=== PATIENT | female | born 1980 | race Caucasian/White ===

== ENCOUNTER 2019-01-05 12:49 | Inpatient (IN) | payer MEDICAID ==
[~2019-01-05] VITALS: Ht 165.1 cm; Wt 79.0 kg
[2019-01-05] MEDS ORDERED: ketorolac trometh inj. 60 MG/2 ML VIAL IM ONE (13:35)
[2019-01-05] MEDS ORDERED: TETanus/Pertussis (Acell)/Diphther VAC/PF (Tdap-Adult) 0.5ml syringe IM ONE (13:35)
[2019-01-05] MEDS ORDERED: acetaminophen 325mg tablet PO ONE (13:35)
[2019-01-05] MEDS ORDERED: ceFAZolin 1gm IM kit IM ONE (13:40)
[2019-01-05] MEDS ORDERED: ampicillin/sulbac 3gm/NS 100ml 100 ML IV SCH (13:40)
[2019-01-05] MEDS ORDERED: piperacillin/tazo 4.5gm/100ml 100 ML IV ONE (13:55)
[2019-01-05] MEDS ORDERED: magnesium Cl slow-release 64mg tablet PO PRN (14:40)
[2019-01-05] MEDS ORDERED: acetaminophen 325mg tablet PO PRN (14:40)
[2019-01-05] MEDS ORDERED: ondansetron/PF 4mg/2ml inj IV PRN (14:40)
[2019-01-05] MEDS ORDERED: morphine 2 MG/ML inj. syringe IV PRN ×2 (14:40)
[2019-01-05] MEDS ORDERED: magnesium 2GM in 50ml NS 50 ML IV PRN (14:40)
[2019-01-05] MEDS ORDERED: potassium Cl 20 mEq SR tablet PO PRN ×2 (14:40)
[2019-01-05] MEDS ORDERED: mag hydrox/Alum hydrox/simeth 30ml oral suspension PO PRN (14:40)
[2019-01-05] MEDS ORDERED: potassium CL 10mEq/100ml bag 100 ML IV PRN ×2 (14:40)
[2019-01-05] MEDS ORDERED: magnesium 4gm in 100ml NS 100 ML IV PRN (14:40)
[2019-01-05] MEDS ORDERED: magnesium hydroxide 30ml (MOM) UD suspension PO PRN (14:40)
[2019-01-05 14:41] LABS: BASOPHILS # (AUTO) 0.1 X10'3 (0-0.2); BASOPHILS % (AUTO) 0.9 % (0-1); EOSINOPHILS # (AUTO) 0.3 X10'3 (0-0.9); EOSINOPHILS % (AUTO) 3.5 % (0-6); HEMATOCRIT 39.5 % (35.0-45.0); HEMOGLOBIN 13.8 g/dl (12.0-16.0); LYMPHOCYTES # (AUTO) 1.7 X10'3 (1.1-4.8); LYMPHOCYTES % (AUTO) 21.3 % (21-51); MEAN CORPUSCULAR HEMOGLOBIN 30.3 PG (27.0-31.0); MEAN CORPUSCULAR HGB CONC 34.9 g/dL (33.0-36.5); MEAN CORPUSCULAR VOLUME 86.8 FL (78-98); MEAN PLATELET VOLUME 7.6 FL (7.4-10.4); MONOCYTES % (AUTO) 13.2 % (2-12); NEUTROPHILS # (AUTO) 4.7 X10'3 (1.8-7.7); NEUTROPHILS % (AUTO) 61.1 % (42-75); PLATELET COUNT 308 X10'3 (140-440); RED BLOOD COUNT 4.55 X10'6 (4.20-5.60); RED CELL DISTRIBUTION WIDTH 13.4 % (11.5-14.5); WHITE BLOOD COUNT 7.8 X10'3 (4.5-11.0)
[2019-01-05 14:53] LABS: ALANINE AMINOTRANSFERASE 61 U/L (12-78); ALBUMIN 3.4 G/DL (3.4-5.0); ALBUMIN/GLOBULIN RATIO 0.7 (1.1-1.5); ALKALINE PHOSPHATASE 111 IU/L (46-116); ANION GAP 9 (8-16); ASPARTATE AMINO TRANSFERASE 34 U/L (10-37); BILIRUBIN,TOTAL 0.5 MG/DL (0.1-1.0); BLOOD UREA NITROGEN 6 MG/DL (7-18); BUN/CREATININE RATIO 8.7 (6.6-38.0); CALCIUM 9.3 MG/DL (8.5-10.1); CHLORIDE 106 MMOL/L (99-107); CREATININE 0.69 MG/DL (0.40-0.90); ETHANOL < 0.010 GM/DL (0.0-0.010); GLUCOSE 81 MG/DL (70-104); POTASSIUM 4.3 MMOL/L (3.5-5.1); SODIUM 141 MMOL/L (135-145); TOTAL CARBON DIOXIDE 25.8 MMOL/L (24-32); TOTAL PROTEIN 8.2 G/DL (6.4-8.2); eGFR > 90 ML/MIN
[2019-01-05] MEDS ORDERED: NO HOME MEDS (14:54)
[2019-01-05] MEDS: normal saline 1000ml 1,000 ML IV SCH (15:18)
[2019-01-05 15:29] LABS: CLARITY,URINE CLOUDY (Clear); COLOR,URINE YELLOW (Yellow); GLUCOSE, URINE NEGATIVE (Neg); KETONES,URINE TRACE mg/dl (Neg); LEUKOCYTE ESTERASE ,URINE NEGATIVE (Neg); NITRITES, URINE NEGATIVE (Neg); OCCULT BLOOD,URINE NEGATIVE (Neg); PH,URINE 5.5 (4.8-8.0); PROTEIN,URINE NEGATIVE (Neg)
[2019-01-05 15:30] LABS: URINE HCG NEGATIVE (NEG)
[2019-01-05 15:42] LABS: UA COLLECTION TYPE CLN CATCH MIDSTREAM
[2019-01-05 15:43] LABS: URINE AMPHETAMINE SCREEN POSITIVE (Neg); URINE BARBITUATE SCREEN NEGATIVE (Neg); URINE BENZODIAZEPINES SCREEN NEGATIVE (Neg); URINE CANNABINOID SCREEN NEGATIVE (Neg); URINE COCAINE SCREEN NEGATIVE (Neg); URINE METHADONE SCREEN NEGATIVE (Neg); URINE OPIATE SCREEN POSITIVE (Neg); URINE PHENCYCLIDINE SCREEN NEGATIVE (Neg)
[2019-01-05 15:53] LABS: RBC,URINE NONE SEEN /HPF (0-2)
[2019-01-05 15:54] LABS: CAL OXALATE CRYSTALS 4+ /HPF (NEGATIVE); MUCUS STRANDS MANY /LPF (Neg); SQUAMOUS EPITHELIAL CELL,UR FEW /LPF (FEW); WBC,URINE 0-4 /HPF (0-4)
[2019-01-05 15:55] LABS: BACTERIA,URINE FEW /HPF (Neg)
[2019-01-05] MEDS ORDERED: piperacillin/tazo 3.375gm/50ml 50 ML IV SCH (16:00)
--- NOTE | 2019-01-05 16:52 | NUR ---
received report from ER nurse
[2019-01-05 17:19] VITALS: BP 99/75
[2019-01-05 18:00] VITALS: BP 99/75
--- NOTE | 2019-01-05 18:20 | NUR ---
Patient in room [facility]. I have received report from NAMRATA Looney and had the opportunity to ask questions and assume patient care.
[2019-01-05] MEDS: HYDROcodone/acetaminophen 5mg/325mg tablet PO PRN (19:50)
[2019-01-05 22:00] VITALS: BP 104/63
[2019-01-05] MEDS: ketorolac trometh. 30mg/ml inj. IV PRN (22:14)
[2019-01-05] MEDS: piperacillin/tazo 3.375gm/50ml 50 ML IV SCH (23:53)
[2019-01-06] MEDS: normal saline 1000ml 1,000 ML IV SCH (04:06)
[2019-01-06] MEDS: ketorolac trometh. 30mg/ml inj. IV PRN (04:06)
[2019-01-06 06:10] VITALS: BP 110/63
[2019-01-06 06:10] LABS: BASOPHILS # (AUTO) 0.1 X10'3 (0-0.2); BASOPHILS % (AUTO) 0.8 % (0-1); EOSINOPHILS # (AUTO) 0.3 X10'3 (0-0.9); EOSINOPHILS % (AUTO) 3.3 % (0-6); HEMATOCRIT 36.2 % (35.0-45.0); HEMOGLOBIN 12.7 g/dl (12.0-16.0); LYMPHOCYTES % (AUTO) 23.7 % (21-51); MEAN CORPUSCULAR HEMOGLOBIN 30.4 PG (27.0-31.0); MEAN CORPUSCULAR HGB CONC 35.2 g/dL (33.0-36.5); MEAN CORPUSCULAR VOLUME 86.4 FL (78-98); MEAN PLATELET VOLUME 7.8 FL (7.4-10.4); MONOCYTES # (AUTO) 1.1 X10'3 (0-0.9); NEUTROPHILS # (AUTO) 4.9 X10'3 (1.8-7.7); NEUTROPHILS % (AUTO) 59.2 % (42-75); PLATELET COUNT 288 X10'3 (140-440); RED BLOOD COUNT 4.19 X10'6 (4.20-5.60); RED CELL DISTRIBUTION WIDTH 13.1 % (11.5-14.5); WHITE BLOOD COUNT 8.3 X10'3 (4.5-11.0)
--- NOTE | 2019-01-06 06:32 | NUR ---
I have received patient report from Laura OTT
--- NOTE | 2019-01-06 06:35 | NUR ---
Problems reprioritized. Patient report given, questions answered & plan of care reviewed with NAMRATA Peñaloza.
[2019-01-06 06:40] LABS: ALBUMIN 2.7 G/DL (3.4-5.0); ANION GAP 10 (8-16); BLOOD UREA NITROGEN 11 MG/DL (7-18); BUN/CREATININE RATIO 13.1 (6.6-38.0); CALCIUM 8.3 MG/DL (8.5-10.1); CHLORIDE 109 MMOL/L (99-107); CREATININE 0.84 MG/DL (0.40-0.90); POTASSIUM 4.2 MMOL/L (3.5-5.1); SODIUM 143 MMOL/L (135-145); TOTAL CARBON DIOXIDE 24.4 MMOL/L (24-32); eGFR 75 ML/MIN
[2019-01-06 06:44] LABS: GLUCOSE 101 MG/DL (70-104)
[2019-01-06] MEDS ORDERED: K and/or MAG REPLACEMENT MC SCH (08:00)
[2019-01-06] MEDS ORDERED: enoxaparin 40mg/0.4ml syringe SQ SCH (08:00)
[2019-01-06] MEDS: piperacillin/tazo 3.375gm/50ml 50 ML IV SCH (09:08)
[2019-01-06 10:00] VITALS: BP 128/94
[2019-01-06] MEDS: HYDROcodone/acetaminophen 5mg/325mg tablet PO PRN (11:32)
[2019-01-06] MEDS ORDERED: nicotine 21mg patch - 24 hr TD SCH (12:00)
[2019-01-06] MEDS ORDERED: LACTC PO (12:20)
[2019-01-06] MEDS ORDERED: AMOX-422 PO (12:22)
[2019-01-06] MEDS ORDERED: HYDR-3965 PO (12:22)
--- NOTE | 2019-01-06 13:05 | NUR ---
Dr Tate taught patient wound care instructions and educated patient about wound. Patient discharge with her at this time. Paper copy of norco and Augmentin given to patient.
== END 2019-01-06 13:05 | disposition home or self-care (01) | DRG 342 ==
LOC: ER 12:50 → ORTHO 4S 17:02
PROVIDERS: ADMIT Hospitalist; ATTEND Hospitalist
DX: S52.202A Unspecified fracture of shaft of left ulna, initial encounter for closed fracture (principal); F17.210 Nicotine dependence, cigarettes, uncomplicated; L03.114 Cellulitis of left upper limb; S41.152A Open bite of left upper arm, initial encounter; Z88.6 Allergy status to analgesic agent; Z79.899 Other long term (current) drug therapy; W54.0XXA Bitten by dog, initial encounter; Y93.89 Activity, other specified; Y92.89 Other specified places as the place of occurrence of the external cause; Y99.8 Other external cause status
CPT/HCPCS: 36415; 71045; 73090; 80048; 80053; 80305; 80320; 81001; 81025; 83735; 85025; 85610; 86885; 86900; 86901; 87081; 90471; 93005; 96365; 96372; 99285; G0378; J0295; J1650; J1885; J2405; J2543; J7030

== ENCOUNTER 2022-12-13 20:14 | Emergency (ER) | payer MEDICAID ==
[~2022-12-13] VITALS: Ht 170.2 cm; Wt 85.0 kg
[~2022-12-13 20:14] MED LIST: LACTC PO
[2022-12-13 20:32] VITALS: BP 152/95; PULSE 120; RESP 18; TEMP 97.3; O2SAT 95
[2022-12-13] MEDS ORDERED: LORazepam 1 MG tablet PO ONE (21:25)
[2022-12-13 21:48] LABS: BASOPHILS % (AUTO) 0.4 % (0-1); EOSINOPHILS % (AUTO) 0.4 % (0-6); HEMATOCRIT 46.6 % (35.0-45.0); HEMOGLOBIN 16.4 g/dl (12.0-16.0); LYMPHOCYTES # (AUTO) 1.5 X10'3 (1.1-4.8); LYMPHOCYTES % (AUTO) 15.7 % (21-51); MEAN CORPUSCULAR HEMOGLOBIN 31.3 PG (27.0-31.0); MEAN CORPUSCULAR HGB CONC 35.2 g/dL (33.0-36.5); MEAN CORPUSCULAR VOLUME 88.8 FL (78-98); MEAN PLATELET VOLUME 9.6 FL (7.4-10.4); MONOCYTES # (AUTO) 0.7 X10'3 (0-0.9); NEUTROPHILS # (AUTO) 7.2 X10'3 (1.8-7.7); NEUTROPHILS % (AUTO) 76.5 % (42-75); PLATELET COUNT 244 X10'3 (140-440); RED BLOOD COUNT 5.25 X10'6 (4.20-5.60); RED CELL DISTRIBUTION WIDTH 13.2 % (11.5-14.5); WHITE BLOOD COUNT 9.4 X10'3 (4.5-11.0)
[2022-12-13 21:58] LABS: ALANINE AMINOTRANSFERASE 29 U/L (12-78); ALBUMIN 4.1 G/DL (3.4-5.0); ALBUMIN/GLOBULIN RATIO 0.8 (1.1-1.5); ALKALINE PHOSPHATASE 96 IU/L (46-116); ANION GAP 10 (8-16); ASPARTATE AMINO TRANSFERASE 17 U/L (10-37); BILIRUBIN,TOTAL 1.1 MG/DL (0.1-1.0); BLOOD UREA NITROGEN 9 MG/DL (7-18); BUN/CREATININE RATIO 9.2 (10.0-20.0); CALCIUM 10.1 MG/DL (8.5-10.1); CHLORIDE 102 MMOL/L (99-107); CREATININE 0.98 MG/DL (0.40-0.90); POTASSIUM 3.6 MMOL/L (3.5-5.1); SODIUM 141 MMOL/L (135-145); TOTAL CARBON DIOXIDE 28.6 MMOL/L (24-32); TOTAL PROTEIN 9.2 G/DL (6.4-8.2); eCRCL 72 ML/MIN; eGFR 62 ML/MIN
[2022-12-13 22:17] LABS: GLUCOSE 132 MG/DL (70-104)
== END 2022-12-13 22:44 | disposition home or self-care (01) ==
LOC: ER 20:15
DX: R00.0 Tachycardia, unspecified (principal); T50.7X5A Adverse effect of analeptics and opioid receptor antagonists, initial encounter; Y92.89 Other specified places as the place of occurrence of the external cause; I25.2 Old myocardial infarction; F17.200 Nicotine dependence, unspecified, uncomplicated; F15.90 Other stimulant use, unspecified, uncomplicated; Z86.19 Personal history of other infectious and parasitic diseases; Z88.8 Allergy status to other drugs, medicaments and biological substances; Z79.899 Other long term (current) drug therapy
CPT/HCPCS: 36415; 80053; 84484; 85025; 93005; 99284

== ENCOUNTER 2024-10-04 13:43 | Inpatient (IN) | payer MEDICAID ==
[~2024-10-04] VITALS: Ht 167.6 cm; Wt 114.0 kg
[2024-10-04 14:53] LABS: BASOPHILS % (AUTO) 0.2 % (0-1); EOSINOPHILS % (AUTO) 0 % (0-6); HEMATOCRIT 43.4 % (35.0-45.0); HEMOGLOBIN 14.9 g/dl (12.0-16.0); LYMPHOCYTES # (AUTO) 0.9 X10'3 (1.1-4.8); MEAN CORPUSCULAR HEMOGLOBIN 30.1 PG (27.0-31.0); MEAN CORPUSCULAR HGB CONC 34.3 g/dL (33.0-36.5); MEAN CORPUSCULAR VOLUME 87.7 FL (78-98); MEAN PLATELET VOLUME 9.7 FL (7.4-10.4); MONOCYTES # (AUTO) 0.3 X10'3 (0-0.9); MONOCYTES % (AUTO) 3.6 % (2-12); NEUTROPHILS # (AUTO) 8.2 X10'3 (1.8-7.7); NEUTROPHILS % (AUTO) 87.2 % (42-75); PLATELET COUNT 268 X10'3 (140-440); RED BLOOD COUNT 4.94 X10'6 (4.20-5.60); RED CELL DISTRIBUTION WIDTH 12.8 % (11.5-14.5); WHITE BLOOD COUNT 9.4 X10'3 (4.5-11.0)
[2024-10-04 15:06] LABS: ALANINE AMINOTRANSFERASE 625 U/L (12-78); ALBUMIN 3.7 G/DL (3.4-5.0); ALBUMIN/GLOBULIN RATIO 0.8 (1.1-1.5); ALKALINE PHOSPHATASE 120 IU/L (46-116); ANION GAP 14 (8-16); ASPARTATE AMINO TRANSFERASE 622 U/L (10-37); BILIRUBIN,TOTAL 2.9 MG/DL (0.1-1.0); BLOOD UREA NITROGEN 9 MG/DL (7-18); BUN/CREATININE RATIO 9.3 (10.0-20.0); CALCIUM 9.2 MG/DL (8.5-10.1); CHLORIDE 103 MMOL/L (99-107); CREATININE 0.97 MG/DL (0.40-0.90); GLUCOSE 161 MG/DL (70-104); LIPASE 34 U/L (16-77); POTASSIUM 3.7 MMOL/L (3.5-5.1); SODIUM 142 MMOL/L (135-145); TOTAL CARBON DIOXIDE 25.1 MMOL/L (24-32); TOTAL PROTEIN 8.2 G/DL (6.4-8.2); eCRCL 72 ML/MIN; eGFR 62 ML/MIN
--- NOTE | 2024-10-04 15:23 | Physician Documentation ---
History of Present Illness Chief Complaint: Abdominal Pain Stated Complaint: ABD PAIN VOMITING Time Seen by MD: 14:29 Primary Medical Doctor: Vernell Nunez MD [facility] This is a 43-year-old female who presents with acute onset of epigastric pain at approximately 1:30 this morning, pain is without precipitating or palliating factors and patient reports accompanying vomiting and diarrhea without reported blood, patient reports no fever. Medication Reconciliation Allergies: Coded Allergies: codeine (Unverified Allergy, Unknown, HIVES, 01/05/19) Scheduled Lactobacillus Acidophilus (ACIDOPHILUS capsule), 1 CAP PO DAILY, (Reported) Methadone Hcl (Dolophine), 12 TAB PO DAILY Past Medical History Past Medical History: Myocardial Infarction, Hepatitis C Past Surgical History: noncontributory Drug Use: methamphetamine Lives In: Home Review of Systems ROS Epigastric and right quadrant abdominal pain as stated above in the HPI, otherwise all systems are reviewed and negative. Physical Exam Vital Signs: Temperature: 97.9, Source: Temporal, Heart Rate: 67, Respiratory Rate: 17, BP: 114/76, Pulse Oximetry: 96, Weight: 115.850 Oxygen Flow Rate: 0 Physical Exam VITALS: Reviewed and as above. GENERAL: Alert, painful appearing, nontoxic appearing. RESPIRATORY: No increased work of breathing, no respiratory distress, speaking in full clear sentences, lung sounds clear in all guo CV: Regular rate and rhythm no murmur BACK: No CVA tenderness GI: Upper epigastric tenderness to palpation, soft, nondistended, no rebound, no guarding, bowel sounds present Progress Progress Note 1617: I spoke with on-call GI Dr. Todd who recommends admission for serial monitoring of labs, MRCP, and a surgical consult 1629: I spoke with on-call general surgeon Dr. Carrizales who agrees to consult on patient 1727: I spoke with Dr. Melchor hospitalist attending who kindly accepts patient for admission Results/Orders Results/Orders Orders - SUMIT HOOKS Ultrasound Of Abdomen (10/04/24 15:14) Completed Orders - SUMIT HOOKS Ketorolac Trometh 15mg/Ml Vial (Toradol (10/04/24 15:15) Vital Signs 10/04/24 10/04/24 13:46 14:35 Temp 97.9 Pulse 67 Resp 18 17 B/P (MAP) 114/76 Pulse Ox 96 O2 Flow Rate 0 Laboratory Tests Test 10/04/24 14:19 White Blood Count 9.4 Red Blood Count 4.94 Hemoglobin 14.9 Hematocrit 43.4 Mean Corpuscular Volume 87.7 Mean Corpuscular Hemoglobin 30.1 Mean Corpuscular Hemoglobin Concent 34.3 Red Cell Distribution Width 12.8 Platelet Count 268 Mean Platelet Volume 9.7 Neutrophils (%) (Auto) 87.2 H Lymphocytes (%) (Auto) 9.0 L Monocytes (%) (Auto) 3.6 Eosinophils (%) (Auto) 0 Basophils (%) (Auto) 0.2 Neutrophils # (Auto) 8.2 H Lymphocytes # (Auto) 0.9 L Monocytes # (Auto) 0.3 Eosinophils # (Auto) 0.0 Basophils # (Auto) 0.0 CBC Comment Sodium Level 142 Potassium Level 3.7 Chloride Level 103 Carbon Dioxide Level 25.1 Anion Gap 14 Blood Urea Nitrogen 9 Creatinine 0.97 H Estimated GFR/1.73 m2 62 BUN/Creatinine Ratio 9.3 L Glucose Level 161 H Calcium Level 9.2 Total Bilirubin 2.9 H Aspartate Amino Transf (AST/SGOT) 622 H Alanine Aminotransferase (ALT/SGPT) 625 H Alkaline Phosphatase 120 H Total Protein 8.2 Albumin 3.7 Globulin 4.5 H Albumin/Globulin Ratio 0.8 L Lipase 34 Chemistry Comments EKG/XRAY/CT/US/VASC/MRI Ultrasound : Impression EXAM: US Abdomen Limited, Right Upper Quadrant CLINICAL INDICATION: Epigastric Pain TECHNIQUE: Real-time ultrasound of the right upper quadrant with image documentation. COMPARISON: None FINDINGS: LIVER: Fatty infiltration of the liver. Liver measures up to 19.57 mm. No intrahepatic bile duct dilation. GALLBLADDER: Cholelithiasis. Positive Gomez's. COMMON BILE DUCT: Common bile duct is prominent measuring 0.72 cm in diameter. No common bile duct stone is seen. PANCREAS: Unremarkable as visualized. RIGHT KIDNEY: Right kidney measures up to 10.93 cm. No stones. No hydronephrosis. OTHER FINDINGS: . . IMPRESSION: 1. Fatty infiltration of the liver. 2. Cholelithiasis with positive Gomez's sign. Evolving acute cholecystitis can not be excluded. 3. Common bile duct is prominent measuring 0.72 cm in diameter. No common bile duct stone is seen. Electronically Signed by:KIKI ARCHER MD Date & Time: 10/04/24 163 Dictated by: KIKI ARCHER MD Dictation date and time: 10/04/24 1631 Medical Decision Making Findings This 43-year-old female presented to the emergency department with acute onset of epigastric and right quadrant pain this morning without palliating or provoking factors, physical exam demonstrated epigastric and right upper quadrant abdominal tenderness and ultrasound was obtained demonstrating nonmobile stone in the neck of the gallbladder along with CBD dilation without evidence of stone in the CBD, additionally there was no evidence of gallbladder wall thickening or pericystic fluid. Patient's labs significant for elevated bilirubin, AST, ALT, and alk phos without elevation of lipase. Discussed case with on-call GI as this is consistent with cholelithiasis with possible evolving cholecystitis or choledocholithiasis, GI recommends admission for MRCP, serial monitoring, and recommends getting a surgical consult. On-call surgeon contacted who agrees to consult on patient. Patient is currently hemodynamically stable and afebrile making suspicion for acute colicystitis or cholangitis along with sepsis low at this point therefore antibiotics not initiated. Patient initiated on pain medications. Hospitalist team contacted and kindly accepts patient for admission. Differential Dx:Considerations: Include: Appendicitis, Bowel obstruction, Cholangitis, Constipation, Diverticular disease, Gastritis/PUD, Gastroenteritis, Inflammatory BD, Ovarian cyst/torsion, Urinary obstruction, Urinary tract infection, Urolithiasis Departure Disposition: 09 ADMITTED INPATIENT Admitted to Inpatient Unit: to hospitalist Impression: Primary Impression: Cholelithiasis Qualified Codes: K80.21 - Calculus of gallbladder without cholecystitis with obstruction Condition: Guarded Referrals: NO PRIMARY CARE PROVIDER (PCP) Prescriptions Methadone Hcl (Dolophine) 10 Mg Tablet 12 TAB PO DAILY for pain for 5 Days, #15 TAB Prov: KIKI MELCHOR DO 10/04/24 Signature Scribe Signature: No scribe Attestation: The note accurately reflects work and decisions made by me.ARASH Soto 10/05/24 03:17 SUMIT HOOKS Oct 04, 2024 15:23
[2024-10-04] MEDS: ketorolac trometh 15mg/ml vial 15 MG/ML ML IV ONE (15:36)
--- NOTE | 2024-10-04 16:33 | RADIOLOGY REPORT ---
EXAM: US Abdomen Limited, Right Upper Quadrant CLINICAL INDICATION: Epigastric Pain TECHNIQUE: Real-time ultrasound of the right upper quadrant with image documentation. COMPARISON: None FINDINGS: LIVER: Fatty infiltration of the liver. Liver measures up to 19.57 mm. No intrahepatic bile duct dilation. GALLBLADDER: Cholelithiasis. Positive Gomez's. COMMON BILE DUCT: Common bile duct is prominent measuring 0.72 cm in diameter. No common bile duct stone is seen. PANCREAS: Unremarkable as visualized. RIGHT KIDNEY: Right kidney measures up to 10.93 cm. No stones. No hydronephrosis. OTHER FINDINGS: . . IMPRESSION: 1. Fatty infiltration of the liver. 2. Cholelithiasis with positive Gomez's sign. Evolving acute cholecystitis can not be excluded. 3. Common bile duct is prominent measuring 0.72 cm in diameter. No common bile duct stone is seen.
[2024-10-04] MEDS: morphine 4 MG/ML inj SYRINge IV ONE (17:15)
[2024-10-04] MEDS: ondansetron/PF 4mg/2ml inj IV ONE (17:15)
[2024-10-04] MEDS ORDERED: potassium Cl 40MEQ/1/2NS 520ml 520 ML IV PRN (17:35)
[2024-10-04] MEDS ORDERED: mag hydrox/Alum hydrox/simeth 30ml oral suspension PO PRN (17:35)
[2024-10-04] MEDS ORDERED: magnesium sulf-water 2g/50mL 50 ML IV PRN (17:35)
[2024-10-04] MEDS ORDERED: HYDROmorphone inj. 0.5 MG/0.5 ML DISP.SYRIN IV PRN (17:35)
[2024-10-04] MEDS ORDERED: magnesium sulf-water 4G/100mL 100 ML IV PRN (17:35)
[2024-10-04] MEDS ORDERED: potassium Cl 20 mEq SR tablet PO PRN ×2 (17:35)
[2024-10-04] MEDS: normal saline 1000ml 1,000 ML IV SCH (18:55)
[2024-10-04] MEDS: HYDROmorphone 1 mg/ml syringe IV PRN (18:55)
[2024-10-04] MEDS: ondansetron/PF 4mg/2ml inj IV PRN (19:03)
--- NOTE | 2024-10-04 19:03 | CONSULTATION REPORT ---
History of Present Illness Providers to CC CC: SUMIT LEE MD ~ Reason for Admit\Admit Dx: Abdominal pain Refering MD: Vernell Nunez MD History of Present Illness Acute onset of upper abdominal pain this morning at about 1:30 a.m.. Awakened from sleep. Progressive and increasing in severity. Nausea and vomiting Evaluation by the emergency room physician shows findings concerning for possible choledocholithiasis Elevated bilirubin, transaminitis and slightly elevated alkaline phosphatase Known cholelithiasis MRCP results pending, however, I do not see any definitive stones in the common duct Cholelithiasis Allergies: Coded Allergies: codeine (Unverified Allergy, Unknown, HIVES, 01/05/19) Home Medications Home Medications Active Reported ACIDOPHILUS capsule (Lactobacillus Acidophilus) 1 Cap Capsule 1 Cap PO DAILY 20 Days Past Medical History Medical History Comment None reported Past Surgical History Surgical History Comment None reported Past Family History Family History Comment Noncontributory Past Social History Social History Comment History of narcotic abuse Denies alcohol History of methamphetamine use Health Maintenance Health Maintenance Not applicable Physical Exam Last Vital Signs Recorded: RN Vital Signs have been reviewed: Yes, Temperature: 97.9, Source: Temporal, Heart Rate: 58, Respiratory Rate: 16, BP: 130/75, Pulse Oximetry: 92, Weight: 115.850 General Appearance: alert, WD/WN, obese EENT: PERRL/EOMI; No: scleral icterus (R), scleral icterus (L) Neck: normal inspection, supple Respiratory: crackles Cardiovascular: regular rate, rhythm Gastrointestinal Softly distended Significant epigastric and right upper quadrant tenderness to palpation without rebound No palpable masses Review of Systems ROS ROS Comments: Reviewed and negative with the exception of those found in the history of present illness Results Diagram Lab Result Diagram: 10/04/24 1419 10/04/24 1419 Assessment/Plan Problems/Diagnosis: (1) Hyperbilirubinemia (2) Cholelithiasis Additional Plan I suspect transient choledocholithiasis I will await the final results of the MRCP, however, anticipate that the bilirubin and transaminitis should trend downward tomorrow morning If this is the case, we will recommend interval cholecystectomy It is also possible that the patient has acute cholecystitis with the compression of the common duct (Mirizzi syndrome). Either way, patient will ultimately need cholecystectomy. NPO after midnight Repeat CMP in the morning Await MRCP results Should the MRCP be interpreted as choledocholithiasis or if there was significant up trending of the bilirubin and alkaline phosphatase, interval ERCP prior to interval cholecystectomy would be recommended. Problem Qualifiers (1) Cholelithiasis: Qualified Codes: K80.21 - Calculus of gallbladder without cholecystitis with obstruction SUMIT LEE MD Oct 04, 2024 19:03
[2024-10-04] MEDS: K and/or MAG REPLACEMENT MC SCH (20:00)
[2024-10-04] MEDS: docusate sod 100mg capsule PO SCH (20:00)
[2024-10-04 20:28] LABS: URINE HCG NEGATIVE (NEG)
[2024-10-04 20:30] LABS: BILIRUBIN,URINE LARGE (Neg); CLARITY,URINE CLOUDY (Clear); COLOR,URINE AMBER (Yellow); GLUCOSE, URINE 100 mg/dl (Neg); KETONES,URINE 15 mg/dl (Neg); LEUKOCYTE ESTERASE ,URINE NEGATIVE (Neg); NITRITES, URINE POSITIVE (Neg); OCCULT BLOOD,URINE TRACE-INTACT (Neg); PROTEIN,URINE 30 mg/dl (Neg)
[2024-10-04 20:44] LABS: UA COLLECTION TYPE CLN CATCH MIDSTREAM
[2024-10-04 20:46] LABS: BACTERIA,URINE 4+ /HPF (Neg); MUCUS STRANDS NONE SEEN /LPF (Neg); SQUAMOUS EPITHELIAL CELL,UR FEW /LPF (FEW)
[2024-10-04 20:47] LABS: AMORPHOUS URATES 1+
[2024-10-04 21:00] VITALS: BP 143/83; PULSE 63; RESP 22; TEMP 99.1; O2SAT 96
--- NOTE | 2024-10-04 21:17 | HISTORY AND PHYSICAL ---
History & Physical Providers to CC ~ History of Present Illness Reason for Admit\Complaint: Cholecystitis possible choledocholithiasis History of Present Illness This is a 43-year-old female who early this morning at 1:30 a.m. developed upper abdominal pain with nausea and vomiting- the pain is severe to the point where she ended up coming to the ED the patient denies any fever- the patient has significant hyperbilirubinemia 2.9 and transaminitis- and a abdominal ultrasound demonstrates cholelithiasis and a prominent common bile duct of 0.72 cm but no stones in the common bile duct. Dr. Carrizales surgeon evaluated the patient and reviewed the MRCP in his assessed that the MRCP was not impressive if the bilirubin trends down Dr. Carrizales will take the patient for a cholecystectomy tomorrow otherwise the patient may require an ERCP with Dr Todd interior decorator paperhanging Allergies: Coded Allergies: codeine (Unverified Allergy, Unknown, HIVES, 01/05/19) Home Medications Home Medications Active Reported ACIDOPHILUS capsule (Lactobacillus Acidophilus) 1 Cap Capsule 1 Cap PO DAILY 20 Days Past Medical History Past Medical History Hepatitis-C treated, myocardial infarction, Past Surgical History Surgical History Comment No prior surgeries Family History Family History: FH: breast cancer Maternal grandmother FH: lung cancer FATHER Maternal grandmother FH: prostate cancer Maternal grandfather Past Social History Social History Comment Vapes nicotine, does not drink alcohol, has 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, full code status ROS ROS Except for positives in the HPI the rest of the 14 point review systems is negative Exam Vitals: Vital Signs Date Time Temp Pulse Resp B/P (MAP) Pulse Ox O2 Delivery O2 Flow Rate FiO2 10/04/24 18:55 16 10/04/24 18:24 58 130/75 (93) 92 0 10/04/24 13:46 97.9 Diagnostic Data Last Recorded Lab Results: 10/04/24 1419 10/04/24 1419 Problems: (1) Cholelithiasis Status: Acute Additional Plan #Cholecystitis/ possible choledocholithiasis- significant hyperbilirubinemia 2.9 and transaminitis- and a abdominal ultrasound demonstrates cholelithiasis and a prominent common bile duct of 0.72 cm but no stones in the common bile duct. Dr. Carrizales surgeon evaluated the patient and reviewed the MRCP in his assessed that the MRCP was not impressive if the bilirubin trends down Dr. Carrizales will take the patient for a cholecystectomy tomorrow otherwise the patient may require an ERCP with Dr Todd interior decorator paperhanging- on IV Zosyn # history of heroin addiction- Per patient on methadone 129 mg through [facility] nursing staff we will need to confirm this in the morning # Tobacco abuse-I spent 6 minutes discussing smoking cessation with the patient including the risk of continuing smoke: Lung cancer, stroke, heart attack, poor wound healing, increased in facial wrinkling, The patient has accepted a 14 mg nicotine patch. # hepatitis-C Cured # history of HI- No signs of acute coronary syndrome # DVT prophylaxis SCDs and SQ Lovenox # I spent a total of 17 minutes on reviewing various resuscitative measures/ ACP with the patient at the time of admission. The patient has decided on a full code status Date of Service: Oct 04, 2024 Billing Provider: KIKI HERRMANN DO Common Visit Codes: 01507-ZVHDLHC INP/OBS CARE (HIGH) Secondary Visit Codes: 99391-WTTKP CHNG SMOKING 3-10M, 84343-[id number] CARE PLAN 30 MINUTES Problem Qualifiers (1) Cholelithiasis: Cholelithiasis location: gallbladder Cholecystitis presence: without cholecystitis Biliary obstruction: with biliary obstruction Qualified Codes: K80.21 - Calculus of gallbladder without cholecystitis with obstruction KIKI HERRMANN DO Oct 04, 2024 21:17
[2024-10-04] MEDS ORDERED: DOL10T PO (21:39)
[2024-10-04] MEDS: methadone 10mg tablet PO ONE (22:30)
[2024-10-04] MEDS: metoclopramide 10mg tablet PO ONE (22:30)
[2024-10-04] MEDS: enoxaparin 40mg/0.4ml syringe SQ SCH (22:31)
[2024-10-05] VITALS (22 sets, daily range): BP systolic 110–168; BP diastolic 65–93; PULSE 52–76; RESP 12–22; TEMP 97.4–98.7; O2SAT 92–100
[2024-10-05] MEDS: piperacillin/tazo 4.5gm/100ml 100 ML IV SCH (01:28)
[2024-10-05] MEDS: acetaminophen 325mg tablet PO PRN (02:19)
[2024-10-05 04:35] LABS: BASOPHILS % (AUTO) 0.3 % (0-1); EOSINOPHILS % (AUTO) 0 % (0-6); HEMATOCRIT 43.2 % (35.0-45.0); HEMOGLOBIN 14.5 g/dl (12.0-16.0); LYMPHOCYTES # (AUTO) 1.4 X10'3 (1.1-4.8); LYMPHOCYTES % (AUTO) 12.5 % (21-51); MEAN CORPUSCULAR HEMOGLOBIN 29.9 PG (27.0-31.0); MEAN CORPUSCULAR HGB CONC 33.6 g/dL (33.0-36.5); MEAN CORPUSCULAR VOLUME 88.9 FL (78-98); MEAN PLATELET VOLUME 9.6 FL (7.4-10.4); MONOCYTES # (AUTO) 0.6 X10'3 (0-0.9); MONOCYTES % (AUTO) 5.6 % (2-12); NEUTROPHILS # (AUTO) 9.3 X10'3 (1.8-7.7); NEUTROPHILS % (AUTO) 81.6 % (42-75); PLATELET COUNT 240 X10'3 (140-440); RED BLOOD COUNT 4.86 X10'6 (4.20-5.60); WHITE BLOOD COUNT 11.4 X10'3 (4.5-11.0)
[2024-10-05 04:57] LABS: ALANINE AMINOTRANSFERASE 890 U/L (12-78); ALBUMIN 3.4 G/DL (3.4-5.0); ALKALINE PHOSPHATASE 130 IU/L (46-116); ANION GAP 10 (8-16); ASPARTATE AMINO TRANSFERASE 648 U/L (10-37); BILIRUBIN,TOTAL 5.2 MG/DL (0.1-1.0); BLOOD UREA NITROGEN 8 MG/DL (7-18); BUN/CREATININE RATIO 6.5 (10.0-20.0); CALCIUM 8.8 MG/DL (8.5-10.1); CHLORIDE 103 MMOL/L (99-107); CREATININE 1.23 MG/DL (0.40-0.90); GLUCOSE 139 MG/DL (70-104); MAGNESIUM 2.1 MG/DL (1.5-2.4); POTASSIUM 3.9 MMOL/L (3.5-5.1); SODIUM 144 MMOL/L (135-145); TOTAL CARBON DIOXIDE 30.6 MMOL/L (24-32); eCRCL 37 ML/MIN; eGFR 47 ML/MIN
[2024-10-05 05:02] LABS: ALBUMIN/GLOBULIN RATIO 0.8 (1.1-1.5); TOTAL PROTEIN 7.8 G/DL (6.4-8.2)
--- NOTE | 2024-10-05 06:49 | ELECTROCARDIOGRAPH REPORT ---
[facility] Test Date: 2024-10-05 Test Time: 06:45:42 Pat Name: NIRAV ANDREA Department: [id number] Room: [place] [address] B Gender: F [employer] Mechanical Specialist: RAYRAY : 1980 Requested By: SUMIT LEE Order Number: [id number] Reading MD: Dr. Porter Perez Measurements Intervals [place] Rate: 47 P: 266 ND: 127 QRS: 39 QRSD: 100 T: 35 QT: 469 QTc: 415 Interpretive Statements Ectopic atrial bradycardia Electronically Signed On 10-08-2024 19:03:[address] Porter Perez Please click the below link to view image of tracing.
--- NOTE | 2024-10-05 09:59 | RADIOLOGY REPORT ---
CLINICAL HISTORY: Epigastric pain, RUQ PAIN, 7MM CBD ON US TECHNIQUE: MRI and MRCP of the abdomen was performed without gadolinium. 3D reconstructed images wer e created under concurrent radiologist supervision and archived on the PACS system. WID: COMPARISON: None FINDINGS: Examination is slightly limited due to repetitive patient motion. Lower Thorax: Upper limits of normal-sized heart. Trace bilateral pleural effusions. Lung bases are g rossly clear although not optimally evaluated by MRI. Liver and Biliary system: Hepatomegaly measuring 20 cm craniocaudal. Redemonstration of a mildly prom inent common bile duct measuring 7 mm. No choledocholithiasis is seen. There is cholelithiasis in a distended gallbladder which measures 4.3 cm transverse. There is mild gallbladder wall thickening an d gallbladder wall edema. No intrahepatic bile duct dilatation. Spleen: Mild splenomegaly Adrenal Glands and Kidneys: Unremarkable. Pancreas and Retroperitoneum: Unremarkable. Aorta and Major Vessels: Unremarkable. Bowel, Mesentery and Peritoneal space: Unremarkable. Abdominal wall and Osseous Structures: Unremarkable. IMPRESSION: 1. Dilated gallbladder with gallbladder wall thickening and mild edema , and cholelithiasis which wou ld support a diagnosis of acute cholecystitis. 2. Mildly prominent common bile duct measuring 7 mm. No intrahepatic bile duct dilatation or choledo cholithiasis. 3. Mild hepatosplenomegaly. 4. Trace bilateral pleural effusions.
[2024-10-05] MEDS ORDERED: ondansetron/PF 4mg/2ml inj IV PRN (10:00)
[2024-10-05] MEDS ORDERED: meperidine/PF 25mg/ml syringe IV PRN ×3 (10:00)
[2024-10-05] MEDS ORDERED: proCHLORperazine 10 MG/2 ml inj IV PRN (10:00)
[2024-10-05] MEDS ORDERED: labetalol 20mg/4ml (5mg/ml) syringe IV PRN (10:00)
[2024-10-05] MEDS ORDERED: morphine 2 MG/ML inj. syringe IV PRN (10:00)
[2024-10-05] MEDS: methadone 10mg tablet PO SCH ×2 (10:20)
--- NOTE | 2024-10-05 11:59 | CONSULTATION REPORT - RESIDENT ---
Consult Providers to CC Resident Creating Document: KRAIG ADAMS CC: CASS TODD MD History of Present Illness Reason for Admit\\Complaint: Abdominal pain History of Present Illness Patient is a 43-year-old female with medical history of CAD and fentanyl abuse methadone who came to the ED due to abdominal pain. Patient reports that she presented with severe abdominal pain 2 days ago located in right upper quadrant, 9/10 in intensity, constant, stabbing, nonradiating, accompanied by several episodes of vomiting, containing "chunks" and clear liquid, as well as low-grade fever. She denies diarrhea, hematemesis, melena or hematochezia. Patient has never had an endoscopy or colonoscopy in the past. Abdominal ultrasound upon admission showed signs consistent with calculous cholecystitis, and prominent bile duct. GI has been consulted by Dr. Carrizales for possible ERCP prior to cholecystectomy. Allergies: Coded Allergies: codeine (Unverified Allergy, Unknown, HIVES, 01/05/19) Home Medications Home Medications Active Dolophine (Methadone HCl) 10 Mg Tablet 12 Tab PO DAILY 5 Days Reported ACIDOPHILUS capsule (Lactobacillus Acidophilus) 1 Cap Capsule 1 Cap PO DAILY 20 Days Past Medical History Past Medical History CAD with a questionable [place] History of fentanyl abuse Past Surgical History Surgical History Comment None Family History Family History: FH: breast cancer Maternal grandmother FH: lung cancer FATHER Maternal grandmother FH: prostate cancer Maternal grandfather Past Social History Social History Comment Currently vapes. She used to smoke 1 pack a day for the past 10 years, quit 1 year ago Denies alcohol or recreational drugs Lives with her sister and her family ROS ROS All systems were reviewed and found negative except for pertinent positives mentioned in HPI Exam Vitals: Vital Signs Date Time Temp Pulse Resp B/P (MAP) Pulse Ox O2 Delivery O2 Flow Rate FiO2 10/05/24 05:40 20 96 Room Air 10/04/24 21:00 99.1 63 143/83 (103) 10/04/24 18:24 0 General: General: Obese habitus, awake, alert oriented to place, time, and person HEENT: No pallor present, no obvious icterus, moist mucous membranes Neck: No masses and tenderness Resp: Unlabored. Lungs clear to auscultation bilaterally. Heart: Regular Rate and rhythm, normal S1 and S2 without murmur, rub or gallop Abdomen: Soft and significantly tender in right upper quadrant, Gomez sign positive, no organomegaly, no guarding and rigidity, bowel sounds present Neuro: No weakness in the upper and lower limb muscles, power of the muscles 5/5 bilateral upper and lower muscles, knee reflex present bilaterally. Cranial nerves intact Extremities: No cyanosis,clubbing or edema Skin: Warm and Dry. No lesions Diagnostic Data Last Recorded Lab Results: 10/05/2440310/05/24403 Additional Plan Gastroenterology consultation note: Patient is a 43-year-old female with medical history of CAD and fentanyl abuse methadone who came to the ED due to abdominal pain. Admitted for acute cholecystitis. GI has been consulted by Dr. Carrizales for possible ERCP prior to cholecystectomy due to concerns of choledocholithiasis. Abdominal pain Acute calculous cholecystitis Possible choledocholithiasis Labs show total bilirubin 2.9, 5.2. AST 622, 648. ALT 625, 890. ALP 120, 130 Abdominal ultrasound shows Fatty infiltration of the liver. Cholelithiasis with positive Gomez's sign. Evolving acute cholecystitis can not be excluded. Common bile duct is prominent measuring 0.72 cm in diameter. No common bile duct stone is seen. MRCP shows Dilated gallbladder with gallbladder wall thickening and mild edema , and cholelithiasis which would support a diagnosis of acute cholecystitis. Mildly prominent common bile duct measuring 7 mm. No intrahepatic bile duct dilatation or choledocholithiasis. Mild hepatosplenomegaly. In view of increasing LFTs, will still move forward with ERCP. All risks and benefits of the procedure were discussed with the patient and she wishes to proceed. Patient will undergo cholecystectomy posteriorly with Dr. Carrizales Keep NPO Continue Zosyn Continue IV fluids Patient discussed in detail with Dr. Todd Other comorbidities include: Morbid obesity CAD with questionable AK Management per hospitalist team Disposition: Continue care in surgical unit. ERCP followed by cholecystectomy today Kraig Castelan MD Internal Medicine Resident PGY-1 Date of Service: Oct 05, 2024 Billing Provider: CASS TODD MD, LEONARDO LUIS Oct 05, 2024 11:59
[2024-10-05] MEDS: INDOCYANINE GREEN 25 MG/10 ML VIAL IV ONE (12:57)
[2024-10-05] MEDS ORDERED: iohexol 300mg/ml 100ml inj. ONE (13:31)
[2024-10-05] MEDS ORDERED: glucagon, human recombinant 1mg kit ONE (13:32)
[2024-10-05] MEDS ORDERED: BUPIVAcaine 2.5mg/ml inj 50ml vial (contains preservative) ONE (14:35)
[2024-10-05] MEDS ORDERED: LIDOcaine 1% 30ml preserv. free vial ONE (14:35)
[2024-10-05] MEDS ORDERED: fentaNYL/PF 50MCG/1 ML 2ML syringe ONE ×2 (14:57→16:19)
[2024-10-05] MEDS ORDERED: MIDAZolam 1 MG/ML 5ML VIAL ONE (14:58)
[2024-10-05] MEDS ORDERED: sevoflurane 250ml liquid IH ONE (15:00)
[2024-10-05] MEDS ORDERED: ceFAZolin 1000mg inj ONE ×2 (15:02)
[2024-10-05] MEDS ORDERED: rocuronium 10mg/ml inj IV ONE ×2 (15:08→15:15)
[2024-10-05] MEDS ORDERED: LIDOcaine 2% (20mg/ml) 5ml vial ONE (15:08)
[2024-10-05] MEDS ORDERED: dexamethasone sod phosphate 4mg/ml inj. ONE (15:08)
[2024-10-05] MEDS ORDERED: propofol inj 20 ML IV ONE (15:08)
[2024-10-05] MEDS: CefTRIAXone 2gm/D5W 50ml BAG 50 ML IV ONE (15:15)
[2024-10-05] MEDS ORDERED: ondansetron/PF 4mg/2ml inj ONE (15:23)
[2024-10-05] MEDS ORDERED: labetalol 20mg/4ml (5mg/ml) syringe IV ONE (15:24)
[2024-10-05] MEDS: BUPIVAcaine/PF 2.5 mg/ml (0.25%) 30ml vial IJ ONE (16:50)
[2024-10-05] MEDS ORDERED: sugammadex 200mg/2ml injection IV ONE (17:06)
[2024-10-05] MEDS ORDERED: naloxone 0.4 mg/ml inj IV PRN (17:40)
--- NOTE | 2024-10-05 17:44 | OPERATIVE REPORT ---
Operative Report Providers to CC CC: TK LEE MD ~ Date of Procedure: Oct 05, 2024 Pre-Operative Diagnosis: Cholidocholithisas Post-Operative Diagnosis SAME as PRE-Op Procedure Performed Robotic assisted, laparoscopic cholecystectomy Surgeon: Tk Lee MD FACS Automobile Bra[employer] Bonder None Anesthesiologist: Marty Reese Type of Anesthesia: General Findings: Edematous gallbladder Wound class II Complications None Prosthetics\Implants used: None Estimated Blood Loss: Minimal Specimen Removed: Gallbladder Description of Procedure: Patient had just finished ERCP for suspected choledocholithiasis. No stone was noted within the common duct, however, a stent was left. Patient was placed supine and general anesthesia was induced. A supraumbilical, midline incision was made, long enough to accommodate a 12 mm Morgan port. Morgan technique was used to gain entry into the abdomen. Stay sutures were placed in the Morgan port anchored to the fascia. Abdomen was insufflated without incident. Laparoscope was inserted and the abdomen surveyed. Secondary, 8.5 mm robotic trochars were placed in the left upper quadrant and right lateral abdomen. Robotic arm was docked to the patient. Robotic instruments were guided intra- abdominally under laparoscopic visualization. Gallbladder was readily identified. It was edematous and somewhat distended. Using firefly, no contrast was noted within the gallbladder consistent with acute cholecystitis Fundus of the gallbladder was grasped and retracted over the dome of the liver. Infundibulum was retracted towards the right lower quadrant. Firefly technology was used to obtain a fluorescent cholangiogram and visualize the pertinent anatomy. Cystic duct was not clearly visualized. Peritoneum overlying the triangle was incised with hook electrocautery. This allowed for circumferential dissection of the cystic duct and artery. Critical view of safety was obtained. Duct and artery were then clipped with hemo-lock clips and both structures divided. Gallbladder was retracted laterally and dissected out of the gallbladder fossa. Gallbladder was set aside and fluorescent cholangiogram of the gallbladder fossa was used to confirm no evidence of bile leak. Gallbladder was placed in a laparoscopic retrieval bag. Secondary trochars were removed and the abdomen allowed to deflate. Morgan port was removed with the specimen in its retrieval bag. Fascia at the umbilical port site was closed with 0 Vicryl sutures. Skin was closed with skin arvind About 50 cc of local anesthetic was used during the case. Sterile dressings were applied. Patient was awakened and taken to the postanesthesia care unit in stable condition. Counts repoted as correct: Yes TK LEE MD Oct 05, 2024 17:44
[2024-10-05] MEDS: enalaprilat 1.25mg/ml 2ml vial IV PRN (18:06)
[2024-10-05] MEDS: morphine 4 MG/ML inj SYRINge IV PRN (18:44)
[2024-10-05] MEDS: ringers solution, lacted 1,000 ML IV SCH (19:07)
--- NOTE | 2024-10-05 20:03 | RADIOLOGY REPORT ---
ENDOSCOPIC RETROGRADE CHOLANGIOPANCREATOGRAPHY REASON FOR EXAM: abd pain COMPARISON: None TECHNIQUE: Procedural fluoroscopy was provided. A total of 5 fluoroscopic images are submitted. FLUOROSCOPY TIME: 44.9 sec DOSE AREA PRODUCT: [id number] mGym2 FINDINGS/ CONCLUSION: Endoscopic retrograde cholangiopancreatography. Please refer to the operative report by the gastroe nterologist in the patient's electronic medical record.
--- NOTE | 2024-10-05 22:25 | PROGRESS NOTE ---
Daily Progress Note Providers to CC ~ Antibiotic Timeout Antibiotic Ordered?: Yes Subjective I evaluated the patient postop she was snoring the patient is status post ERCP and cholecystectomy Objective Vital Signs Date Time Temp Pulse Resp B/P (MAP) Pulse Ox O2 Delivery O2 Flow Rate FiO2 10/05/24 20:00 Room Air 10/05/24 18:50 74 16 142/72 (95) 94 0.0 10/05/24 18:45 98.2 Result Diagram: 10/05/2440310/05/24403 Gen. No acute distress alert and oriented 4 Lungs clear to ascultation bilaterally, no wheezes rales or rhonchi appreciated Heart normal sinus rhythm no murmurs rubs or clicks noted Abdomen soft nontender bowel sounds are normoactive Lower extremities no clubbing cyanosis, nor edema appreciated bilaterally Problem\Assessment\Plan Problems/Diagnosis: (1) Cholelithiasis #Cholecystitis/ possible choledocholithiasis- significant hyperbilirubinemia 2.9 and transaminitis- and a abdominal ultrasound demonstrates cholelithiasis and a prominent common bile duct of 0.72 cm but no stones in the common bile duct. Dr. Carrizales surgeon evaluated the patient and reviewed the MRCP in his assessed that the MRCP was not impressive if the bilirubin trends down Dr. Carrizales will take the patient for a cholecystectomy tomorrow otherwise the patient may require an ERCP with Dr Todd watch adjuster- on IV Zosyn 10/05 the patient was bilirubin up trended thus the patient went 1st for an ERCP and the common bile duct was tight however there was no ching stenosis or stones found and a stent was placed, this was followed by a robotic laparoscopic cholecystectomy by Dr. Carrizales. # history of heroin addiction- Per patient on methadone 129 mg through [facility] nursing staff we will need to confirm this in the morning # Tobacco abuse-I spent 6 minutes discussing smoking cessation with the patient including the risk of continuing smoke: Lung cancer, stroke, heart attack, poor wound healing, increased in facial wrinkling, The patient has accepted a 14 mg nicotine patch. # hepatitis-C Cured # history of [place]- No signs of acute coronary syndrome # DVT prophylaxis SCDs and SQ Lovenox Date of Service: Oct 05, 2024 Billing Provider: KIKI HERRMANN DO Common Visit Codes: [id number] INP/OBS CARE(HIGH) Problem Qualifiers (1) Cholelithiasis: Qualified Codes: K80.21 - Calculus of gallbladder without cholecystitis with obstruction KIKI HERRMANN DO Oct 05, 2024 22:25
[2024-10-06 02:30] VITALS: BP 134/82; PULSE 69; TEMP 98.5; O2SAT 90
[2024-10-06 06:00] VITALS: BP 96/60; PULSE 67; RESP 16; TEMP 97.4; O2SAT 93
[2024-10-06 06:12] LABS: BASOPHILS % (AUTO) 0.1 % (0-1); EOSINOPHILS % (AUTO) 0 % (0-6); HEMATOCRIT 38.7 % (35.0-45.0); HEMOGLOBIN 12.9 g/dl (12.0-16.0); LYMPHOCYTES # (AUTO) 1.1 X10'3 (1.1-4.8); LYMPHOCYTES % (AUTO) 10.5 % (21-51); MEAN CORPUSCULAR HEMOGLOBIN 29.6 PG (27.0-31.0); MEAN CORPUSCULAR HGB CONC 33.2 g/dL (33.0-36.5); MEAN PLATELET VOLUME 9.2 FL (7.4-10.4); MONOCYTES # (AUTO) 0.6 X10'3 (0-0.9); MONOCYTES % (AUTO) 5.8 % (2-12); NEUTROPHILS # (AUTO) 8.5 X10'3 (1.8-7.7); NEUTROPHILS % (AUTO) 83.6 % (42-75); PLATELET COUNT 209 X10'3 (140-440); RED BLOOD COUNT 4.35 X10'6 (4.20-5.60); RED CELL DISTRIBUTION WIDTH 13.4 % (11.5-14.5); WHITE BLOOD COUNT 10.2 X10'3 (4.5-11.0)
[2024-10-06 06:35] LABS: ALANINE AMINOTRANSFERASE 749 U/L (12-78); ALBUMIN 2.9 G/DL (3.4-5.0); ALKALINE PHOSPHATASE 124 IU/L (46-116); ANION GAP 7 (8-16); ASPARTATE AMINO TRANSFERASE 393 U/L (10-37); BILIRUBIN,TOTAL 5.4 MG/DL (0.1-1.0); BLOOD UREA NITROGEN 9 MG/DL (7-18); BUN/CREATININE RATIO 7.8 (10.0-20.0); CALCIUM 8.2 MG/DL (8.5-10.1); CHLORIDE 106 MMOL/L (99-107); CREATININE 1.16 MG/DL (0.40-0.90); GLUCOSE 118 MG/DL (70-104); POTASSIUM 3.9 MMOL/L (3.5-5.1); SODIUM 143 MMOL/L (135-145); TOTAL CARBON DIOXIDE 29.8 MMOL/L (24-32); eCRCL 58 ML/MIN; eGFR 51 ML/MIN
[2024-10-06 06:41] LABS: ALBUMIN/GLOBULIN RATIO 0.8 (1.1-1.5); TOTAL PROTEIN 6.6 G/DL (6.4-8.2)
--- NOTE | 2024-10-06 06:42 | PROGRESS NOTE ---
Progress Note Dictate Providers to CC ~ Progress Note: Subsequent surgical care on a 43-year-old woman who is postoperative day one status post robotic assisted, laparoscopic cholecystectomy She had an episode of what appeared to be transient choledocholithiasis/obstructive jaundice Known cholelithiasis Clinically much better today ERCP yesterday as well with a stent placement Incisions are dressed and dry Tolerating diet Safe for discharge home when medically clear She will need follow up with the straightener gun parts for stent removal in 4-6 weeks Discharge instructions placed from a surgical standpoint Follow up instructions for the surgeon placed Dr. Antonio Gamble covering me for the next week Antibiotic Ordered?: Yes Objective Vitals Vital Signs Date Time Temp Pulse Resp B/P (MAP) Pulse Ox O2 Delivery O2 Flow Rate FiO2 10/06/24 02:30 98.5 69 134/82 (99) 90 Nasal Cannula 2.0 10/06/24 02:17 18 Lab Results: 10/06/24 0454 10/06/24 0454 Problem\Assessment\Plan Problems/Diagnosis: (1) Hyperbilirubinemia (2) Cholelithiasis Problem Qualifiers (1) Cholelithiasis: Qualified Codes: K80.21 - Calculus of gallbladder without cholecystitis with obstruction SUMIT LEE MD Oct 06, 2024 06:42
[2024-10-06 08:30] VITALS: RESP 18; O2SAT 97
[2024-10-06 10:00] VITALS: BP 102/63; PULSE 69; RESP 18; TEMP 97.9; O2SAT 94
[2024-10-06] MEDS: proCHLORperazine 10 MG/2 ml inj IV PRN (16:42)
[2024-10-06 18:00] VITALS: BP 128/84; PULSE 75; RESP 18; TEMP 98.1; O2SAT 94
[2024-10-06] MEDS: methadone 10mg tablet PO SCH (19:43)
[2024-10-06] MEDS ORDERED: methadone 10mg tablet PO SCH (20:00)
--- NOTE | 2024-10-06 20:37 | PROGRESS NOTE ---
Daily Progress Note Providers to CC ~ Antibiotic Timeout Antibiotic Ordered?: Yes Subjective The patient is was nauseated does not feel well overall however she was able to ambulate without any complaints- the patient's bilirubin slightly up trended however her liver function tests otherwise are improving Objective Vital Signs Date Time Temp Pulse Resp B/P (MAP) Pulse Ox O2 Delivery O2 Flow Rate FiO2 10/06/24 14:36 16 10/06/24 10:00 97.9 69 102/63 (76) 94 Room Air 10/06/24 06:00 2.0 Result Diagram: 10/06/244 10/06/24453 Gen. No acute distress alert and oriented 4 Lungs clear to ascultation bilaterally, no wheezes rales or rhonchi appreciated Heart normal sinus rhythm no murmurs rubs or clicks noted Abdomen soft nontender bowel sounds are normoactive Lower extremities no clubbing cyanosis, nor edema appreciated bilaterally Problem\Assessment\Plan Problems/Diagnosis: (1) Cholelithiasis #Cholecystitis/ possible choledocholithiasis- significant hyperbilirubinemia 2.9 and transaminitis- and a abdominal ultrasound demonstrates cholelithiasis and a prominent common bile duct of 0.72 cm but no stones in the common bile duct. Dr. Carrizales surgeon evaluated the patient and reviewed the MRCP in his assessed that the MRCP was not impressive if the bilirubin trends down Dr. Carrizales will take the patient for a cholecystectomy tomorrow otherwise the patient may require an ERCP with Dr Todd road service locksmith- on IV Zosyn 10/05 the patient was bilirubin up trended thus the patient went 1st for an ERCP and the common bile duct was tight however there was no ching stenosis or stones found and a stent was placed, this was followed by a robotic laparoscopic cholecystectomy by Dr. Carrizales. 10/06 the patient's bilirubin slightly up trended today and the patient is not feel well nauseated the patient will remain hospitalized for an additional evening # history of heroin addiction- Per patient on methadone 129 mg through [facility] nursing staff we will need to confirm this in the morning # Tobacco abuse-I spent 6 minutes discussing smoking cessation with the patient including the risk of continuing smoke: Lung cancer, stroke, heart attack, poor wound healing, increased in facial wrinkling, The patient has accepted a 14 mg nicotine patch. # hepatitis-C Cured # history of [place]- No signs of acute coronary syndrome # DVT prophylaxis SCDs and SQ Lovenox Date of Service: Oct 06, 2024 Billing Provider: KIKI HERRMANN DO Common Visit Codes: [id number] INP/OBS CARE(HIGH) Problem Qualifiers (1) Cholelithiasis: Qualified Codes: K80.21 - Calculus of gallbladder without cholecystitis with obstruction KIKI HERRMANN DO Oct 06, 2024 20:37
[2024-10-06 22:00] VITALS: BP 115/64; PULSE 77; RESP 12; TEMP 98; O2SAT 96
[2024-10-07 06:00] VITALS: BP_SYST 113; BP_SYST 117; BP_DIAS 66; BP_DIAS 78; PULSE 75; PULSE 78; RESP 13; RESP 16; TEMP 97.2; TEMP 98; O2SAT 91; O2SAT 93
[2024-10-07 06:28] LABS: BASOPHILS % (AUTO) 0.3 % (0-1); EOSINOPHILS % (AUTO) 0.1 % (0-6); HEMATOCRIT 35.4 % (35.0-45.0); HEMOGLOBIN 12.1 g/dl (12.0-16.0); LYMPHOCYTES % (AUTO) 10.5 % (21-51); MEAN CORPUSCULAR HEMOGLOBIN 30.8 PG (27.0-31.0); MEAN CORPUSCULAR HGB CONC 34.1 g/dL (33.0-36.5); MEAN CORPUSCULAR VOLUME 90.1 FL (78-98); MONOCYTES # (AUTO) 0.9 X10'3 (0-0.9); MONOCYTES % (AUTO) 9.7 % (2-12); NEUTROPHILS # (AUTO) 7.4 X10'3 (1.8-7.7); NEUTROPHILS % (AUTO) 79.4 % (42-75); PLATELET COUNT 177 X10'3 (140-440); RED BLOOD COUNT 3.93 X10'6 (4.20-5.60); RED CELL DISTRIBUTION WIDTH 13.3 % (11.5-14.5); WHITE BLOOD COUNT 9.4 X10'3 (4.5-11.0)
[2024-10-07 06:56] LABS: ALANINE AMINOTRANSFERASE 619 U/L (12-78); ALBUMIN 2.7 G/DL (3.4-5.0); ALKALINE PHOSPHATASE 137 IU/L (46-116); ANION GAP 6 (8-16); ASPARTATE AMINO TRANSFERASE 191 U/L (10-37); BILIRUBIN,TOTAL 6.5 MG/DL (0.1-1.0); BLOOD UREA NITROGEN 5 MG/DL (7-18); BUN/CREATININE RATIO 4.8 (10.0-20.0); CALCIUM 7.9 MG/DL (8.5-10.1); CHLORIDE 103 MMOL/L (99-107); CREATININE 1.04 MG/DL (0.40-0.90); GLUCOSE 106 MG/DL (70-104); MAGNESIUM 1.9 MG/DL (1.5-2.4); POTASSIUM 3.7 MMOL/L (3.5-5.1); SODIUM 140 MMOL/L (135-145); TOTAL CARBON DIOXIDE 30.9 MMOL/L (24-32); eCRCL 65 ML/MIN; eGFR 58 ML/MIN
[2024-10-07 06:57] LABS: ALBUMIN/GLOBULIN RATIO 0.8 (1.1-1.5); TOTAL PROTEIN 6.3 G/DL (6.4-8.2)
[2024-10-07 08:30] VITALS: RESP 18; O2SAT 93
[2024-10-07 10:00] VITALS: BP 113/66; PULSE 78; RESP 13; TEMP 97.2; O2SAT 91
[2024-10-07] MEDS ORDERED: SINCALIDE IV ONE (12:00)
[2024-10-07] MEDS ORDERED: NORMAL SALINE IV ONE (12:00)
--- NOTE | 2024-10-07 12:06 | PROGRESS NOTE ---
Progress Note ID Providers to CC ~ Progress Note Progress Note: complains of pain/vss/abd-min distention/labs noted a/p 1. s/p arturo-bili elevated/needs hida and ct abd MANAV DICKERSON MD Oct 07, 2024 12:06
[2024-10-07] MEDS: NORMAL SALINE IV ONE (12:14)
[2024-10-07] MEDS: SINCALIDE IV ONE (12:14)
[2024-10-07] MEDS: diatr meglu/diatrizoate 30ml oral sol.-(3 dose) bottle PO SCH (12:48)
[2024-10-07] MEDS ORDERED: ondansetron 4mg rapidly disintigrating tab PO PRN (14:00)
[2024-10-07 18:00] VITALS: BP 141/88; PULSE 82; RESP 16; TEMP 99.6; O2SAT 95
[2024-10-07] MEDS ORDERED: iohexol 300mg/ml 100ml inj. ONE (21:21)
[2024-10-07 22:00] VITALS: BP 102/60; PULSE 76; RESP 20; TEMP 98.8; O2SAT 94
--- NOTE | 2024-10-07 22:52 | PROGRESS NOTE ---
Daily Progress Note Providers to CC ~ Antibiotic Timeout Antibiotic Ordered?: Yes Subjective The patient has a significant right upper quadrant abdominal pain and remains nauseated her bilirubin and liver function tests are up trending as well a HIDA scan in his CT scan of the abdomen and pelvis with the quick 8 hour oral contrast prep is ordered Objective Vital Signs Date Time Temp Pulse Resp B/P (MAP) Pulse Ox O2 Delivery O2 Flow Rate FiO2 10/07/24 20:00 Room Air 10/07/24 16:56 22 10/07/24 14:19 93 10/07/24 10:00 97.2 78 113/66 (82) 91 2.0 Result Diagram: 10/07/24 0511 10/07/24 0511 Gen. No acute distress alert and oriented 4 Lungs clear to ascultation bilaterally, no wheezes rales or rhonchi appreciated Heart normal sinus rhythm no murmurs rubs or clicks noted Abdomen soft significant right upper quadrant tenderness bowel sounds are normoactive Lower extremities no clubbing cyanosis, nor edema appreciated bilaterally Problem\Assessment\Plan Problems/Diagnosis: (1) Cholelithiasis #Cholecystitis/ possible choledocholithiasis- significant hyperbilirubinemia 2.9 and transaminitis- and a abdominal ultrasound demonstrates cholelithiasis and a prominent common bile duct of 0.72 cm but no stones in the common bile duct. Dr. Carrizales surgeon evaluated the patient and reviewed the MRCP in his assessed that the MRCP was not impressive if the bilirubin trends down Dr. Carrizales will take the patient for a cholecystectomy tomorrow otherwise the patient may require an ERCP with Dr Todd assembler golf wood head- on IV Zosyn 10/05 the patient was bilirubin up trended thus the patient went 1st for an ERCP and the common bile duct was tight however there was no ching stenosis or stones found and a stent was placed, this was followed by a robotic laparoscopic cholecystectomy by Dr. Carrizales. 10/06 the patient's bilirubin slightly up trended today and the patient is not feel well nauseated the patient will remain hospitalized for an additional evening 10/07 up trending bilirubin and transaminitis as well as significant right upper quadrant abdominal pain and a intractable nausea- Dr Gamble surgeon has ordered a HIDA scan and a CT scan of the abdomen and pelvis with the 8 hour oral contrast prep # history of heroin addiction- Per patient on methadone 129 mg through [facility] nursing staff we will need to confirm this in the morning # Tobacco abuse-I spent 6 minutes discussing smoking cessation with the patient including the risk of continuing smoke: Lung cancer, stroke, heart attack, poor wound healing, increased in facial wrinkling, The patient has accepted a 14 mg nicotine patch. # hepatitis-C Cured # history of [place]- No signs of acute coronary syndrome # DVT prophylaxis SCDs and SQ Lovenox Date of Service: Oct 07, 2024 Billing Provider: KIKI HERRMANN DO Common Visit Codes: [id number] INP/OBS CARE(HIGH) Problem Qualifiers (1) Cholelithiasis: Qualified Codes: K80.21 - Calculus of gallbladder without cholecystitis with obstruction KIKI HERRMANN DO Oct 07, 2024 22:52
--- NOTE | 2024-10-08 00:30 | RADIOLOGY REPORT ---
Exam: CT CT ABDOMEN PELVIS History: abd pain s/p surgery COMPARISON: None Technique: Multidetector spiral CT of the abdomen and pelvis was performed from lung bases to pubic s ymphysis. Intravenous contrast was administered during this examination. Portal venous imaging was o btained. Axial, coronal and sagittal multiplanar reformats were performed by the technologist on a [employer] workstation. Radiation Dose : 1. Abdomen/Pelvis: CTDIvol 34.57 mGy, DLP 1993.94 mGy*cm. CONTRAST: Type of contrast: Omnipaque 300 Contrast injected: 100 ml Contrast ingested: Oral contrast. Findings: Lung Bases: Trace bilateral pleural effusions with adjacent bibasilar atelectasis. Normal heart size . No pleural or pericardial effusion. Liver: The liver is enlarged, measuring 20.9 cm in craniocaudal dimension. Diffuse hepatic steatosis. No focal lesions. Normal hepatic vascular enhancement. Gallbladder and Biliary Tree: Common bile duct and pancreatic duct stents status post interval cholec ystectomy with associated postsurgical change. Spleen: Unremarkable Pancreas: Moderate inflammatory change noted adjacent to the pancreatic head and proximal pancreatic body. The pancreas is otherwise normal in appearance without focal lesions or abnormal enhancement. Adrenal Glands: Unremarkable Kidneys: No hydronephrosis. Bladder: Unremarkable Bowel: The stomach is grossly normal in appearance. Small bowel and colon are normal in caliber and d istribution. The appendix is normal. Ascites: Trace pelvic ascites. Lymphadenopathy: No mesenteric, retroperitoneal or periportal lymphadenopathy. Abdominal Wall and Mesentery: Multifocal subcutaneous gas and increased soft tissue density consisten t with recent laparoscopic surgery.. Vasculature: The visualized abdominal aorta is normal in size and caliber. Abdominal and pelvic vess els demonstrate normal enhancement. Pelvic Organs: Unremarkable Musculoskeletal: No aggressive focal bony lesions, acute fractures or dislocation. IMPRESSION: 1. Mild inflammatory change adjacent to the pancreatic head and proximal body and common bile duct an d proximal pancreatic duct stent status post interval laparoscopic cholecystectomy. 2. Small volume pelvic ascites. 3. Trace bilateral pleural effusions and adjacent atelectasis. 4. Hepatomegaly and hepatic steatosis. Radiation optimization: All CT scans at this facility use at least one of these dose optimization lizett hniques: automated exposure control mA and/or kV adjustment per patient size (includes targeted exam s where dose is matched to clinical indication) or iterative reconstruction.
[2024-10-08 06:00] VITALS: BP 116/73; PULSE 74; RESP 16; TEMP 98; O2SAT 98
[2024-10-08 06:02] LABS: BASOPHILS % (AUTO) 0.4 % (0-1); EOSINOPHILS # (AUTO) 0.1 X10'3 (0-0.9); EOSINOPHILS % (AUTO) 0.9 % (0-6); HEMATOCRIT 35.9 % (35.0-45.0); HEMOGLOBIN 12.1 g/dl (12.0-16.0); LYMPHOCYTES # (AUTO) 1.1 X10'3 (1.1-4.8); LYMPHOCYTES % (AUTO) 11.5 % (21-51); MEAN CORPUSCULAR HEMOGLOBIN 30.3 PG (27.0-31.0); MEAN CORPUSCULAR HGB CONC 33.7 g/dL (33.0-36.5); MEAN CORPUSCULAR VOLUME 89.8 FL (78-98); MEAN PLATELET VOLUME 9.4 FL (7.4-10.4); MONOCYTES # (AUTO) 0.8 X10'3 (0-0.9); MONOCYTES % (AUTO) 8.8 % (2-12); NEUTROPHILS # (AUTO) 7.4 X10'3 (1.8-7.7); NEUTROPHILS % (AUTO) 78.4 % (42-75); PLATELET COUNT 164 X10'3 (140-440); RED CELL DISTRIBUTION WIDTH 13.3 % (11.5-14.5); WHITE BLOOD COUNT 9.4 X10'3 (4.5-11.0)
[2024-10-08 06:24] LABS: ALANINE AMINOTRANSFERASE 411 U/L (12-78); ALBUMIN 2.4 G/DL (3.4-5.0); ALKALINE PHOSPHATASE 148 IU/L (46-116); ANION GAP 7 (8-16); ASPARTATE AMINO TRANSFERASE 85 U/L (10-37); BILIRUBIN,TOTAL 5.8 MG/DL (0.1-1.0); BLOOD UREA NITROGEN 3 MG/DL (7-18); BUN/CREATININE RATIO 3.4 (10.0-20.0); CALCIUM 8.1 MG/DL (8.5-10.1); CHLORIDE 102 MMOL/L (99-107); CREATININE 0.88 MG/DL (0.40-0.90); GLUCOSE 81 MG/DL (70-104); MAGNESIUM 1.9 MG/DL (1.5-2.4); POTASSIUM 3.4 MMOL/L (3.5-5.1); SODIUM 140 MMOL/L (135-145); TOTAL CARBON DIOXIDE 30.8 MMOL/L (24-32); eCRCL 76 ML/MIN; eGFR 70 ML/MIN
[2024-10-08 06:28] LABS: ALBUMIN/GLOBULIN RATIO 0.6 (1.1-1.5); TOTAL PROTEIN 6.5 G/DL (6.4-8.2)
--- NOTE | 2024-10-08 09:21 | RADIOLOGY REPORT ---
CLINICAL INFORMATION: Rule out common bile duct stone. Abdominal pain status post surgery. TECHNIQUE: 5.4 mCi of Choletec were administered intravenously. Images of the upper abdomen were ob tained at 1 minute intervals up to a total time of 60 minutes. COMPARISON: None FINDINGS: The gallbladder is surgically absent. There is prompt excretion of activity from the bilia ry ductal system into the small bowel. There is no evidence of common bile duct obstruction. No bile leak demonstrated. IMPRESSION: 1. Prompt excretion of the radiopharmaceutical into the small bowel. No findings are seen to suggest common bile duct obstruction. 2. No bile leak demonstrated.
[2024-10-08 10:39] LABS: LIPASE 14 U/L (16-77)
[2024-10-08 11:00] VITALS: BP 129/76; PULSE 64; RESP 16; TEMP 97.3; O2SAT 98
--- NOTE | 2024-10-08 13:49 | PROGRESS NOTE ---
Progress Note ID Providers to CC ~ Progress Note Progress Note: complains of pain/vss/abd-mild distention.labs noted/hida neg a/p 1. s/p arturo-no obstruction/cont supportive care MANAV DICKERSON MD Oct 08, 2024 13:49
[2024-10-08] MEDS ORDERED: potassium Cl 20 mEq SR tablet PO PRN (14:20)
[2024-10-08] MEDS ORDERED: potassium Cl 40MEQ/1/2NS 520ml 520 ML IV PRN (14:20)
[2024-10-08 18:00] VITALS: BP 145/96; PULSE 75; RESP 16; TEMP 98; O2SAT 99
--- NOTE | 2024-10-08 18:29 | PROGRESS NOTE ---
Daily Progress Note Providers to CC ~ Antibiotic Timeout Antibiotic Ordered?: Yes Subjective The patient still does not feel well but is feeling better her pain has improved as well as improvement in her labs restart the patient on a diet Objective Vital Signs Date Time Temp Pulse Resp B/P (MAP) Pulse Ox O2 Delivery O2 Flow Rate FiO2 10/08/24 14:08 16 10/08/24 11:00 97.3 64 129/76 (93) 98 Room Air 10/08/24 08:00 2.0 10/07/24 14:19 93 Result Diagram: 10/08/24 0520 10/08/24 05 Gen. No acute distress alert and oriented 4 Lungs clear to ascultation bilaterally, no wheezes rales or rhonchi appreciated Heart normal sinus rhythm no murmurs rubs or clicks noted Abdomen soft moderate right upper quadrant tenderness bowel sounds are normoactive Lower extremities no clubbing cyanosis, nor edema appreciated bilaterally Problem\Assessment\Plan Problems/Diagnosis: (1) Cholelithiasis #Cholecystitis/ possible choledocholithiasis- significant hyperbilirubinemia 2.9 and transaminitis- and a abdominal ultrasound demonstrates cholelithiasis and a prominent common bile duct of 0.72 cm but no stones in the common bile duct. Dr. Carrizales surgeon evaluated the patient and reviewed the MRCP in his assessed that the MRCP was not impressive if the bilirubin trends down Dr. Carrizales will take the patient for a cholecystectomy tomorrow otherwise the patient may require an ERCP with Dr Todd elderly sitter- on IV Zosyn 10/05 the patient was bilirubin up trended thus the patient went 1st for an ERCP and the common bile duct was tight however there was no ching stenosis or stones found and a stent was placed, this was followed by a robotic laparoscopic cholecystectomy by Dr. Carrizales. 10/06 the patient's bilirubin slightly up trended today and the patient is not feel well nauseated the patient will remain hospitalized for an additional evening 10/07 up trending bilirubin and transaminitis as well as significant right upper quadrant abdominal pain and a intractable nausea- Dr Gamble surgeon has ordered a HIDA scan and a CT scan of the abdomen and pelvis with the 8 hour oral contrast prep 10/08 labs are improving slightly, and the patient's symptoms have improved- HIDA scan was unremarkable and CT scan as well of the abdomen and pelvis with the 8 hour oral contrast prep # history of heroin addiction- Per patient on methadone 129 mg through [facility] nursing staff we will need to confirm this in the morning # Tobacco abuse-I spent 6 minutes discussing smoking cessation with the patient including the risk of continuing smoke: Lung cancer, stroke, heart attack, poor wound healing, increased in facial wrinkling, The patient has accepted a 14 mg nicotine patch. # hepatitis-C Cured # history of [place]- No signs of acute coronary syndrome # DVT prophylaxis SCDs and SQ Lovenox Date of Service: Oct 08, 2024 Billing Provider: KIKI HERRMANN DO Common Visit Codes: [id number] INP/OBS CARE(HIGH) Problem Qualifiers (1) Cholelithiasis: Qualified Codes: K80.21 - Calculus of gallbladder without cholecystitis with obstruction KIKI HERRMANN DO Oct 08, 2024 18:29
[2024-10-08] MEDS: potassium Cl 20 mEq SR tablet PO PRN (19:50)
[2024-10-08] MEDS: K and/or MAG REPLACEMENT MC SCH (19:55)
[2024-10-08 22:00] VITALS: BP 124/78; PULSE 69; RESP 16; TEMP 98.7; O2SAT 94
[2024-10-09 06:00] VITALS: BP 109/69; PULSE 75; RESP 16; TEMP 97.3; O2SAT 96
[2024-10-09 06:34] LABS: BASOPHILS % (AUTO) 0.4 % (0-1); EOSINOPHILS # (AUTO) 0.1 X10'3 (0-0.9); EOSINOPHILS % (AUTO) 1.4 % (0-6); HEMATOCRIT 36.1 % (35.0-45.0); LYMPHOCYTES # (AUTO) 1.3 X10'3 (1.1-4.8); LYMPHOCYTES % (AUTO) 13.5 % (21-51); MEAN CORPUSCULAR HEMOGLOBIN 29.9 PG (27.0-31.0); MEAN CORPUSCULAR HGB CONC 33.3 g/dL (33.0-36.5); MEAN CORPUSCULAR VOLUME 89.7 FL (78-98); MEAN PLATELET VOLUME 9.5 FL (7.4-10.4); MONOCYTES # (AUTO) 0.8 X10'3 (0-0.9); MONOCYTES % (AUTO) 7.9 % (2-12); NEUTROPHILS # (AUTO) 7.5 X10'3 (1.8-7.7); NEUTROPHILS % (AUTO) 76.8 % (42-75); PLATELET COUNT 195 X10'3 (140-440); RED BLOOD COUNT 4.02 X10'6 (4.20-5.60); RED CELL DISTRIBUTION WIDTH 13.2 % (11.5-14.5); WHITE BLOOD COUNT 9.8 X10'3 (4.5-11.0)
[2024-10-09 06:58] LABS: ALANINE AMINOTRANSFERASE 297 U/L (12-78); ALBUMIN 2.5 G/DL (3.4-5.0); ALBUMIN/GLOBULIN RATIO 0.6 (1.1-1.5); ALKALINE PHOSPHATASE 159 IU/L (46-116); ANION GAP 8 (8-16); ASPARTATE AMINO TRANSFERASE 58 U/L (10-37); BILIRUBIN,TOTAL 2.9 MG/DL (0.1-1.0); BLOOD UREA NITROGEN 3 MG/DL (7-18); BUN/CREATININE RATIO 3.3 (10.0-20.0); CALCIUM 8.3 MG/DL (8.5-10.1); CHLORIDE 103 MMOL/L (99-107); GLUCOSE 90 MG/DL (70-104); MAGNESIUM 1.9 MG/DL (1.5-2.4); POTASSIUM 3.6 MMOL/L (3.5-5.1); SODIUM 141 MMOL/L (135-145); TOTAL CARBON DIOXIDE 30.2 MMOL/L (24-32); TOTAL PROTEIN 6.7 G/DL (6.4-8.2); eCRCL 75 ML/MIN; eGFR 68 ML/MIN
[2024-10-09 08:00] VITALS: RESP 16; O2SAT 98
[2024-10-09] MEDS: bisacodyl 10mg suppository rectal RC STA (08:28)
[2024-10-09] MEDS ORDERED: bisacodyl 10mg suppository rectal RC PRN (08:30)
[2024-10-09] MEDS: magnesium hydroxide 30ml (MOM) UD suspension PO PRN (11:07)
[2024-10-09] MEDS ORDERED: ONDA-243 PO (12:49)
--- NOTE | 2024-10-09 14:15 | RADIOLOGY REPORT ---
Date: 10/09/2024 10:14 AM Examination: DI ABDOMEN,SINGLE VIEW(KUB) History: constipation- fecal stool burden evaluation Comparison: None TECHNIQUE: Frontal views of the abdomen was obtained. FINDINGS: Bowel gas pattern is unremarkable. Contrast opacifies the colon. Surgical catheter projects over the right upper quadrant. The lung bases are unremarkable. No acute osseous abnormality identified. IMPRESSION: Nonobstructive bowel gas pattern. Contrast is visualized in the colon.
--- NOTE | 2024-10-09 21:59 | DISCHARGE SUMMARY ---
Discharge Summary Providers to CC ~ Discharge Summary Admission Diagnosis: [facility] Hospital Course DATE OF ADMISSION: 10/04/2024 DATE OF DISCHARGE: 10/09/2024 Discharge Diagnosis\\Comment: Choledocholithiasis, cholecystitis, history of heroin addiction, tobacco use disorder Operations\\Procedures: ERCP, robotic laparoscopic cholecystectomy Consultants: Dr. Tk Carrizales MD general surgeon, Dr. Todd furnace stock inspector Complications: None Condition on DC: Stable New Medications: ONDANSETRON ODT 4mg tablet (Ondansetron Odt) 4 Mg Tab.rapdis 4 MG PO Q6H PRN for nausea/vomiting, #24 TAB Continued Medications: Lactobacillus Acidophilus (ACIDOPHILUS capsule) 1 Cap Capsule 1 CAP PO DAILY for 20 Days, CAP Methadone Hcl (Dolophine) 10 Mg Tablet 12 TAB PO DAILY for pain for 5 Days, #15 TAB Discharge Summary: I admitted the patient with the following HPI:This is a 43-year-old female who early this morning at 1:30 a.m. developed upper abdominal pain with nausea and vomiting- the pain is severe to the point where she ended up coming to the ED the patient denies any fever- the patient has significant hyperbilirubinemia 2.9 and transaminitis- and a abdominal ultrasound demonstrates cholelithiasis and a prominent common bile duct of 0.72 cm but no stones in the common bile duct. Dr. Carrizales surgeon evaluated the patient and reviewed the MRCP in his assessed that the MRCP was not impressive if the bilirubin trends down Dr. Carrizales will take the patient for a cholecystectomy tomorrow otherwise the patient may require an ERCP with Dr Todd furnace stock inspector. The patient has a ERCP and a stent placed in her common bile duct there was a tight bile duct" but there was no ching stricture or stones found. The patient then went for a robotic laparoscopic cholecystectomy with Dr. Carrizales The day post procedures the patient's bilirubin up trended however her liver function tests did slightly improve and the patient was significantly tender thus covering surgeon Dr. Gamble recommended keeping the patient hospitalized an additional day the patient continued to have significant abdominal discomfort however this did improve and the patient has a large bowel movement on the 9th in her bilirubin decreased in half from 5.8 on the 8th-2.9 on the 9th in his liver function almost completely normalized the patient has felt significantly improved and on exam her abdomen was benign and the patient was able to be discharged home. The patient has a history of heroin addiction and remains on methadone The patient has tobacco use disorder I did discuss smoking cessation on admission and treated the patient with a nicotine patch. The patient is to follow up with Dr. Carrizales in one-week and Gastroenterology one month Gen. No acute distress alert and oriented 4 Lungs clear to ascultation bilaterally, no wheezes rales or rhonchi appreciated Heart normal sinus rhythm no murmurs rubs or clicks noted Abdomen soft nontender bowel sounds are normoactive Lower extremities no clubbing cyanosis, nor edema appreciated bilaterally The patient felt ready to be discharged and was medically cleared to be discharged on 10/09/2024 The patient was seen and evaluated on day of discharge. Time spent on discharge 35 minutes *Problems/Diagnosis: (1) Cholelithiasis Status: Acute Total Time Spent on D/C: > 30 Minutes Date of Service: Oct 09, 2024 Billing Provider: KIKI HERRMANN DO Common Visit Codes: 95688-XPQ/OBS DISCH DAY >30min Problem Qualifiers (1) Cholelithiasis: Qualified Codes: K80.21 - Calculus of gallbladder without cholecystitis with obstruction KIKI HERRMANN DO Oct 09, 2024 21:59
== END 2024-10-09 13:57 | disposition home or self-care (01) | DRG 263 ==
LOC: ER 13:43 → ED HOLD 17:43 → SUR 3N 21:00
PROVIDERS: ADMIT Family Medicine; ATTEND Family Medicine
PROC: 0FC98ZZ Extirpation of Matter from Common Bile Duct, Via Natural or Artificial Opening Endoscopic (ICD-10-PCS; 2024-10-05)
PROC: BF131ZZ Fluoroscopy of Gallbladder and Bile Ducts using Low Osmolar Contrast (ICD-10-PCS; 2024-10-05)
PROC: 8E0W4CZ Robotic Assisted Procedure of Trunk Region, Percutaneous Endoscopic Approach (ICD-10-PCS; 2024-10-05)
PROC: BF121ZZ Fluoroscopy of Gallbladder using Low Osmolar Contrast (ICD-10-PCS; 2024-10-05)
PROC: 0FT44ZZ Resection of Gallbladder, Percutaneous Endoscopic Approach (ICD-10-PCS; principal; 2024-10-05 14:44)
PROC: 0F798DZ Dilation of Common Bile Duct with Intraluminal Device, Via Natural or Artificial Opening Endoscopic (ICD-10-PCS; 2024-10-05 14:44)
PROC: BW211ZZ Computerized Tomography (CT Scan) of Abdomen and Pelvis using Low Osmolar Contrast (ICD-10-PCS; 2024-10-08)
PROC: CF1C1ZZ Planar Nuclear Medicine Imaging of Hepatobiliary System, All using Technetium 99m (Tc-99m) (ICD-10-PCS; 2024-10-08)
DX: K80.42 Calculus of bile duct with acute cholecystitis without obstruction (principal); B19.20 Unspecified viral hepatitis C without hepatic coma; K82.8 Other specified diseases of gallbladder; F15.10 Other stimulant abuse, uncomplicated; F17.290 Nicotine dependence, other tobacco product, uncomplicated; I25.2 Old myocardial infarction; Z80.1 Family history of malignant neoplasm of trachea, bronchus and lung; Z80.3 Family history of malignant neoplasm of breast; E66.01 Morbid (severe) obesity due to excess calories; Z68.41 Body mass index [BMI] 40.0-44.9, adult; I25.10 Atherosclerotic heart disease of native coronary artery without angina pectoris
CPT/HCPCS: 36415; 74018; 74177; 74181; 76700; 78226; 80053; 81001; 81025; 82948; 83690; 83735; 85025; 87077; 87081; 87088; 87186; 93005; 96361; 96374; 96375; 99285; A4215; A4615; A4618; A4620; A7000; A9537; C1769; C2625; G0378; J0690; J0780; J1100; J1171; J1610; J1650; J1885; J2003; J2250; J2270; J2405; J2543; J2704; J3010; J3490; J7030; J7040; J7120; Q9963; Q9967